=== PATIENT | male | born 1980 | race Two or more races ===

== ENCOUNTER 2016-11-30 10:01 | Inpatient (IN) | payer OTHER ==
[2016-11-30] VITALS (10 sets, daily range): BP systolic 106–151; BP diastolic 74–92
[~2016-11-30] VITALS: Ht 180.3 cm; Wt 83.9 kg
[~2016-11-30 10:01] MED LIST: IBUPROFEN600 MG ORAL; MEDROL DOSEPAK4 MG ORAL; NORCO 10/3251 EA ORAL; [UNRECOGNIZED DRUG - OTHER] PO
--- NOTE | 2016-11-30 10:18 | Brief Operative Note ---
Immediate Post Operative Note Operative Note Chief Complaint: pars fracture L5S1 Pre-op Diagnosis: L5S1 pars fracture prior L45 disc herniation Procedure: Stage 1 Anterior lumbar interbody fusion L5S1 with bmp Stage 2 posterior allen laminectomy with pedicle screw fixation of L5S1 and L45 re exploration Post-op Diagnosis: same as pre-op Findings: consistent w/pre-op dx studies Surgeon: Betty Shear Grinder Operator: Jerome Gutierrez Anesthesia: general Specimen: none Complications: none Condition: stable Estimated Blood Loss: minimal Implant(s) used?: Yes - nuvasive ashleigh, elvis synthes JOSE ANGEL RUSHING Nov 30, 2016 10:18
--- NOTE | 2016-11-30 10:18 | Pre-Procedure Note/Attestation ---
Pre-Procedure Note/Attestation Complete Prior to Procedure Planned Procedure: not applicable Procedure Narrative: Stage 1 Anterior lumbar interbody fusion L5S1 with bmp Stage 2 posterior allen laminectomy with pedicle screw fixation of L5S1 and L45 re exploration Indications for Procedure Pre-Operative Diagnosis: L5S1 pars fracture prior L45 disc herniation Attestation I attest that I discussed the nature of the procedure; its benefits; risks and complications; and alternatives (and the risks and benefits of such alternatives ), prior to the procedure, with the patient (or the patient's legal account service representative). I attest that, if there was a reasonable possibility of needing a blood transfusion, the patient (or the patient's legal account service representative) was given the [place] [facility] [employer] [facility] standardized written summary, pursuant to the [place] Blood Safety Act ([place] Health and Safety Code # 1645, as amended). I attest that I re-evaluated the patient just prior to the surgery and that there has been no change in the patient's H&P, except as documented below: JOSE ANGEL RUSHING Nov 30, 2016 10:18
[2016-11-30] MEDS ORDERED: Naloxone 0.4mg/ml Inj IVP PRN ×2 (10:30→22:45)
[2016-11-30] MEDS ORDERED: HYDROmorphone 1mg/ml Carpuject SUBQ PRN (10:30)
[2016-11-30] MEDS ORDERED: Norco 7.5mg/325mg tab ORAL PRN ×3 (10:30→13:00)
[2016-11-30] MEDS ORDERED: Norco 5mg/325mg tab ORAL PRN ×2 (10:30→13:00)
[2016-11-30] MEDS ORDERED: Metoclopramide 10mg/2ml Inj IVP PRN ×2 (10:30→13:00)
[2016-11-30] MEDS ORDERED: Milk of Magnesia 30ml Ud ORAL PRN (10:30)
--- NOTE | 2016-11-30 11:10 | Anethesia Preoperative Eval ---
Anesthesia Pre-op PMH/ROS General Date of Evaluation: Nov 30, 2016 Time of Evaluation: 12:26 Anesthesiologist: Lawrence ASA Score: ASA 2 Mallampati Score Class I : Soft palate, uvula, fauces, pillars visible Class II: Soft palate, uvula, fauces visible Class III: Soft palate, base of uvula visible Class IV: Only hard plate visible Mallampati Classification: Class II Surgeon: Betty Diagnosis: Back Pain Surgical Procedure: ALIF L5-S1, PLIF L5-S1, Pedicle screws Anesthesia History: none Family History: no anesthesia problems Allergies: Coded Allergies: NO KNOWN DRUG ALLERGIES (Verified Allergy, Unknown, 06/16/15) Medications: see eMAR Past Medical History Gastrointestinal/Genitourinary: Reports: GERD Neurologic/Psychiatric: Reports: depression/anxiety, other - Chronic Pain PSxH Narrative: R Forearm Sx, Bilateral Knee Arthroscopy, Cervical Spine SX Anesthesia Pre-op Phys. Exam Physician Exam Vital Signs Date Time Temp Pulse Resp B/P Pulse Ox O2 Delivery O2 Flow Rate FiO2 11/30/16 11:15 97.1 51 18 134/74 100 Room Air Constitutional: NAD Neurologic: CN 2-12 intact Cardiovascular: RRR Respiratory: CTA Gastrointestinal: S/NT/ND Airway Exam Mallampati Score: Class II MO: full ROM: limited Teeth: intact Anesthesia Pre-op A/P Risk Assessment & Plan Assessment: ASA 2 Plan: GA, BIS, Glidescope Status Change Before Surgery: No Pre-Antibiotics Dru Grams Ancef IV Given Within 1 Hr of Incision: Yes Time Given: 12:46 Bandar Bravo MD Nov 30, 2016 11:10
[2016-11-30] MEDS ORDERED: SOMA350 MG PO (11:28)
[2016-11-30] MEDS ORDERED: Heparin 5000 units/ml inj ONE (12:05)
[2016-11-30] MEDS ORDERED: Vancomycin 1gm inj IVPB ONE ×2 (12:05→13:18)
[2016-11-30] MEDS ORDERED: Surgicel 4in x 8in TOPIC ONE (12:05)
[2016-11-30] MEDS ORDERED: Thrombin 5000 units TOPIC ONE ×2 (12:05→13:18)
[2016-11-30] MEDS ORDERED: Bupivacaine w/Epi 0.5% 30ml Vial INJ ONE ×2 (12:06→14:56)
[2016-11-30] MEDS ORDERED: Bacitracin 50000 Units Vial ONE (12:06)
[2016-11-30] MEDS ORDERED: LR 1000ml ONE (12:30)
[2016-11-30] MEDS ORDERED: Sterile Water Irrig 1000ml IRRIG ONE (12:30)
[2016-11-30] MEDS ORDERED: Propofol 10mg/ml 100ml btl IV ONE (12:30)
[2016-11-30] MEDS ORDERED: fentaNYL 100 mcg/2 mL IV ONE (12:30)
[2016-11-30] MEDS ORDERED: Zemuron 50mg/5ml Inj IV ONE (12:30)
[2016-11-30] MEDS ORDERED: fentaNYL 250mcg/5ml ONE (12:30)
[2016-11-30] MEDS ORDERED: Lidocaine 1% Plain 30 ml INJ ONE (12:30)
[2016-11-30] MEDS ORDERED: NS Irrig 1000ml ONE (12:30)
[2016-11-30] MEDS ORDERED: Dexamethasone 4mg/ml vial ONE (12:30)
[2016-11-30] MEDS ORDERED: LR 1000ml 1,000 ML IVLG SCH (12:58)
[2016-11-30] MEDS ORDERED: Oxycodone/Acetaminophen 5-325 ORAL PRN (13:00)
[2016-11-30] MEDS ORDERED: Meperidine 25mg/ml Inj IV PRN (13:00)
[2016-11-30] MEDS ORDERED: Hydromorphone 0.5mg/0.5ml inj IVP PRN (13:00)
[2016-11-30] MEDS ORDERED: LORazepam Inj 2mg/ml 1ml IV PRN (13:00)
[2016-11-30] MEDS ORDERED: Labetalol 5mg/ml 20ml vial IV PRN (13:00)
[2016-11-30] MEDS ORDERED: Atropine Inj 1mg/10ml Syr IV PRN (13:00)
[2016-11-30] MEDS ORDERED: Ketorolac 30mg Inj IV PRN (13:00)
[2016-11-30] MEDS ORDERED: Midazolam 2mg/2ml Inj IVP PRN (13:00)
[2016-11-30] MEDS ORDERED: Ketorolac 60mg Inj IV PRN (13:00)
[2016-11-30] MEDS ORDERED: fentaNYL 100 mcg/2 mL IV PRN (13:00)
[2016-11-30] MEDS ORDERED: DiphenhydrAMINE 50mg/ml Inj IVP PRN (13:00)
--- NOTE | 2016-11-30 13:13 | Immediate Post-Op Evaluation ---
Immediate Post-Op Evalulation Immediate Post-Op Evalulation Procedure: ALIF L5-S1, PLIF L5-S1, Pedicle screws Date of Evaluation: Nov 30, 2016 Time of Evaluation: 17:40 IV Fluids: 1500 Blood Products: 0 Estimated Blood Loss: 150 Urinary Output: 200 Blood Pressure Systolic: 106 Blood Pressure Diastolic: 79 Pulse Rate: 111 Respiratory Rate: 18 O2 Sat by Pulse Oximetry: 100 Temperature (Fahrenheit): 98.1 Pain Score (1-10): 3 Nausea: No Vomiting: No Complications 0 Patient Status: awake, reacts, patent, extubated, none Hydration Status: adequate Dru Grams Ancef IV Given Within 1 Hr of Incision: Yes Time Given: 12:46 Bandar Bravo MD Nov 30, 2016 13:13
[2016-11-30] MEDS ORDERED: Acetaminophen (Non formulary) 100 ML IV ONE (16:00)
[2016-11-30] MEDS: Dexamethasone 4mg/ml vial IVP SCH (19:12)
[2016-11-30] MEDS: HYDROmorphone 1mg/ml Carpuject IVP PRN ×2 (19:52→21:43)
--- NOTE | 2016-11-30 20:19 | Consultation ---
DATE OF CONSULTATION: 11/30/2016 VASCULAR SURGERY CONSULTATION: HISTORY OF PRESENT ILLNESS: The patient is a 36-year-old male who was admitted to undergo anterior lumbar interbody fusion of L5-S1 as determined by his spine surgeon, Dr. Dave Hernández. Prior to today, the patient had received at his home my separate informed consent form which introduced me and explained my role in the approach for the anterior lumbar spine surgery. It also outlined the possible risks and complications, including, but not limited to hemorrhage, need for blood transfusions, retrograde ejaculation, wound infection, bowel or ureter injury, arterial or venous injury or thrombosis, and the remote chance of etc. This form was translated in Romanian as well. The patient read the form, signed it and sent it back to my office. In addition, that is my usual protocol I attempted to reach the patient by phone, but was unsuccessful. However, again as my usual protocol, the patient was seen in the preoperative holding area with the content of the form were reviewed and any questions were answered. He was shown the site of the incision. He had palpable bilateral dorsalis pedis pulses. He was 5 feet 11 inches tall, weighing approximately 182 pounds giving him a BMI of 25. His hematocrit was 45 with a platelet count of 317,000. His INR was 0.96 with a PTT of 32 seconds. That consent was signed once again with a nurse witness and signature as well and then placed into the chart. He fully understood and wished to proceed. There were no contraindications and we would proceed with proposed operation. Henry Gutierrez M.D. DR: Karoline JOB#: [id number] CC:
[2016-11-30] MEDS: NS w/KCl 20mEq 1,000 ML IV SCH (20:30)
[2016-11-30] MEDS: ceFAZolin sod 1 GM in D5W 55 ML IV SCH (20:32)
[2016-11-30] MEDS: Docusate 100mg cap ORAL SCH (20:42)
--- NOTE | 2016-11-30 20:59 | Operative Note - Dictated ---
DATE OF OPERATION: 11/30/2016 OPERATION: 1. Muscle sparing anterior abdominal retroperitoneal approach for anterior lumbar interbody fusion. 2. Plastic closure repair of abdominal wound. CO-SURGEONS: 1. Sonu Gutierrez M.D. 2. Dave Hernández M.D. ANESTHESIA: General. PREOPERATIVE DIAGNOSIS: Disk herniation with lumbar radiculopathy, L5-S1. POSTOPERATIVE DIAGNOSIS: Disk herniation with lumbar radiculopathy, L5-S1. PROCEDURE: Prior to surgery, the patient had received at his home my separate informed consent form, which introduced me and explained my role in the approach for the anterior lumbar spine surgery. It also outlined the possible risks and complications including, but not limited to hemorrhage, need for blood transfusions, retrograde ejaculation, wound infection, bowel or ureter injury, arterial or venous injury or thrombosis, and the remote chance of etc. The patient read the form, signed it and brought back to the hospital with him today. The patient read the form, signed it and sent it back to my office. In addition, as per my usual protocol I attempted to reach the patient by phone, but was unsuccessful. However, again as my usual protocol the patient was seen in the preoperative holding area with the content of the form were reviewed and any questions were answered. He was shown the site of the incision. He had palpable bilateral dorsalis pedis pulses. That consent was signed once again with a nurse witnessed and signature as well and then placed into the chart. He fully understood and wished to proceed. A preoperative Vascular Surgery consultation report was dictated. The patient was taken into the operating room and placed in a supine position. Using an endotracheal tube, he was placed under general anesthesia without difficulty. His abdomen was prepped and draped in the usual sterile manner. An appropriate time-out was obtained. A transverse incision was made in the left lower quadrant from the midline and carried down through the subcutaneous tissues down to the rectus fascia. Hemostasis was achieved using electrocautery. The rectus fascia was incised transversely and elevated off the anterior surface of the muscle for a distance of approximately 4 cm, both caudad and cephalad. This would allow for retraction of the rectus muscle laterally, later in the case noted to obtain direct anterior-posterior approach to the anterior surface of the spine. The inferior epigastric vessels were identified and preserved. Laterally, the retroperitoneal space was entered down to the left psoas muscle. The left ureter was identified and protected, as it was mobilized with the peritoneum more medially until the left iliac artery was identified. Deep self-retaining retractors such as Lisa and Bookwalter were utilized to hold the abdominal wall and peritoneal contents in place while further dissection was carried out. Careful blunt dissection was carried out below the bifurcation of the iliac vessels with several medial branches of the iliac vein were taken between hemoclips and transected. The middle sacral artery was taken between hemoclips and transected. Careful blunt dissection was carried out to preserve the sympathetic chains laterally as well as the parasympathetic plexus, which lies anteriorly along the surface of the fifth lumbar vertebra. Further careful blunt dissection was utilized to expose the anterior surface of the multiple vertebral bodies intervening disc space. Several malleable retractor blades were now placed in all quadrants and the rectus muscle now retracted laterally, which allowed exposure and direct anterior-posterior approach to the anterior surface of the spine. A needle was inserted into the appropriate disc space and an x-ray was taken to verify the exposure. The spine surgeon then proceeded to perform diskectomy and fusion, which would be dictated in a separate report by the spine surgeon, Dr. Hernández. Antibiotic irrigation had been carried out. The malleable retractors were removed. Vancomycin powder was left in the retroperitoneal space. The iliac vessels were checked and there was good flow without thrombus within the iliac vein as well as good flow without a spasm or thrill in the artery. A further check for hemostasis was made and the integrity of the ureter was verified. The peritoneum was allowed to return to its anatomical location and then the anterior rectus sheath approximated using continuous running suture of #1 Vicryl. Subcutaneous tissues were irrigated using dilute Betadine solution as well as antibiotic solution. Hemostasis noted to be achieved. Plastic closure repair of the abdominal wound was continued using 2-0 Vicryl followed by skin approximation using continuous subcuticular suture of 4-0 Monocryl. Steri-Strips were applied. Dry sterile gauze OpSite dressing was applied. The sponge, pad, needle and instrument counts reported as correct. Estimated blood loss was less than 50 mL. There were no complications during this part of procedure. At completion of this part of the procedure, the patient had maintenance of strong palpable bilateral dorsalis pedis pulses and the pulse oximeter registered 100% on the left foot. The patient will remain in the operating room to undergo posterior instrumentation by the spine surgeon. Henry Gutierrez M.D. DR: FARHAT JOB#: [id number] CC:
[2016-11-30] MEDS ORDERED: Rate Change PCA 1 Each MISC PRN (22:45)
[2016-11-30] MEDS ORDERED: PCA HYDROmorphone 1mg/ml 30 ML IV PRN (22:45)
[2016-11-30] MEDS: PCA shift volume MISC SCH (23:00)
[2016-12-01 00:16] VITALS: BP 122/88
[2016-12-01] MEDS: Dexamethasone 4mg/ml vial IVP SCH ×3 (00:28→12:49)
[2016-12-01 04:00] VITALS: BP 129/59
[2016-12-01] MEDS: ceFAZolin sod 1 GM in D5W 55 ML IV SCH ×2 (05:09→12:49)
[2016-12-01] MEDS: NS w/KCl 20mEq 1,000 ML IV SCH ×2 (05:29→17:43)
[2016-12-01] MEDS ORDERED: HYDROmorphone 1mg/ml Carpuject IVP ONE (06:45)
[2016-12-01] MEDS: PCA shift volume MISC SCH ×3 (07:00→23:00)
[2016-12-01 08:00] VITALS: BP 134/63
[2016-12-01] MEDS ORDERED: Rate Change PCA 1 Each MISC PRN (08:00)
[2016-12-01] MEDS ORDERED: PCA HYDROmorphone 1mg/ml 30 ML IV PRN ×2 (08:00→14:45)
[2016-12-01] MEDS: LORazepam Inj 2mg/ml 1ml IV PRN ×3 (08:01→19:40)
[2016-12-01] MEDS: Docusate 100mg cap ORAL SCH ×2 (09:00→17:44)
--- NOTE | 2016-12-01 10:12 | 48 Hour Post Anesthesia Eval ---
Post Anesthesia Evaluation Procedure: ALIF L5-S1, PLIF L5-S1, Pedicle screws Date of Evaluation: Dec 01, 2016 Time of Evaluation: 10:10 Blood Pressure Systolic: 128 0: 76 Pulse Rate: 83 Respiratory Rate: 20 Temperature (Fahrenheit): 97.6 O2 Sat by Pulse Oximetry: 98 Airway: patent Nausea: No Vomiting: No Pain Intensity: 2 Hydration Status: adequate Cardiopulmonary Status: stable Mental Status/LOC: patient returned to baseline Follow-up Care/Observations: n/a Post-Anesthesia Complications: none Follow-up care needed: N/A JAGJIT WEBB M.D. Dec 01, 2016 10:12
[2016-12-01 12:00] VITALS: BP 117/77
[2016-12-01] MEDS: DiphenhydrAMINE 50mg/ml Inj IVP PRN (13:14)
[2016-12-01] MEDS ORDERED: Tubing IV Secondary IV ONE (13:56)
--- NOTE | 2016-12-01 14:32 | Consultation ---
History of Present Illness General Date patient seen: Dec 01, 2016 Time patient seen: 14:31 Chief Complaint: low back pain Referring physician: Dave Hernández MD Reason for Consultation: postop medical management Present Illness HPI 36 y/o man with hx of lumbar stenosis with lumbar hnp and radiculopathy s/p Stage 1 Anterior lumbar interbody fusion L5S1 with bmp Stage 2 posterior lalen laminectomy with pedicle screw fixation of L5S1 and L45 re exploration POD#1 without periop or postop complications. No chest pain or dyspnea, no n/v. Postop pain well controlled on current regimen. Allergies: Coded Allergies: NO KNOWN DRUG ALLERGIES (Verified Allergy, Unknown, 06/16/15) Medication History Scheduled Carisoprodol* (Soma*), 350 MG PO PRN, (Reported) Scheduled PRN Hydrocodone/Acetaminophen (Hydrocodon-Acetaminophn 10-325), 1 TAB ORAL DAILY PRN for For Pain, (Reported) Patient History History Provided By: Patient Healthcare decision maker ADA() Resuscitation status Full Code Advanced Directive on File No Past Medical/Surgical History Past Medical/Surgical History: (1) HNP (herniated nucleus pulposus), cervical (2) HNP (herniated nucleus pulposus), lumbar Family History Family History: (1) Family history in first degree relatives is unremarkable Social History Social History: (1) No significant social history Review of Systems ROS Narrative CONSTITUTIONAL: No weight loss, fever, chills, weakness or fatigue. HEENT: Eyes: No visual loss, blurred vision, double vision or yellow sclerae. Ears, Nose, Throat: No hearing loss, sneezing, congestion, runny nose or sore throat. SKIN: No rash or itching. CARDIOVASCULAR: No chest pain, chest pressure or chest discomfort. No palpitations or edema. RESPIRATORY: No shortness of breath, cough or sputum. GASTROINTESTINAL: No anorexia, nausea, vomiting or diarrhea. No abdominal pain or blood. NEUROLOGICAL: No headache, dizziness, syncope, paralysis, ataxia. No change in bowel or bladder control. MUSCULOSKELETAL: No muscle, back pain, joint pain or stiffness. HEMATOLOGIC: No anemia, bleeding or bruising. LYMPHATICS: No enlarged nodes. No history of splenectomy. PSYCHIATRIC: No history of depression or anxiety. ENDOCRINOLOGIC: No reports of sweating, cold or heat intolerance. No polyuria or polydipsia. ALLERGIES: No history of asthma, hives, eczema or rhinitis. Physical Exam Physical Exam Narrative General: alert, cooperative, no distress, appears stated age Head: normocephalic, without obvious abnormality, atraumatic Eyes: conjunctivae/corneas clear. PERRL, EOM's intact Throat: lips, mucosa, and tongue normal. MMM Neck: supple, symmetrical, trachea midline, and no JVD Lungs: clear to auscultation bilaterally Heart: regular rate and rhythm, S1, S2 normal, no murmur, click, rub or gallop Abdomen: soft, non-tender, non-distended, bowel sounds normal; no masses or organomegaly Extremities: extremities normal, atraumatic, no cyanosis or edema Pulses: 2+ and symmetric Skin: skin color, texture, turgor normal; no rashes or lesions Last 24 Hour Vital Signs Date Time Temp Pulse Resp B/P Pulse Ox O2 Delivery O2 Flow Rate FiO2 12/01/16 12:00 16 12/01/16 12:00 97.7 77 18 117/77 96 Nasal Cannula 2.0 12/01/16 10:12 83 20 98 12/01/16 08:00 98.6 102 18 134/63 98 Nasal Cannula 3.0 12/01/16 08:00 16 12/01/16 04:00 97.2 62 19 129/59 99 Room Air 12/01/16 01:00 16 12/01/16 00:30 16 12/01/16 00:16 97.2 75 19 122/88 97 Room Air 11/30/16 23:46 16 11/30/16 23:36 16 11/30/16 23:15 16 11/30/16 23:00 16 11/30/16 20:00 97.7 67 18 121/89 100 Nasal Cannula 3.0 11/30/16 18:32 97.7 11/30/16 18:32 97.7 11/30/16 18:30 97.7 73 18 124/81 98 Nasal Cannula 3.0 11/30/16 18:25 95 14 126/75 97 Nasal Cannula 3.0 11/30/16 18:25 97.7 11/30/16 18:10 96 16 124/90 98 Nasal Cannula 3.0 11/30/16 17:55 96 16 146/92 20 Simple Mask 8.0 11/30/16 17:39 84 16 129/77 100 Simple Mask 8.0 11/30/16 17:34 80 15 151/74 100 Simple Mask 8.0 11/30/16 17:31 111 18 100 11/30/16 17:29 98.1 120 38 106/79 100 Simple Mask 8.0 Intake and Output 11/30/16 12/01/16 19:00 07:00 Intake Total 1600 ml 700 ml Output Total 450 ml 1025 ml Balance 1150 ml -325 ml Intake Oral 200 ml IV Total 1600 ml 500 ml Output Urine Total 300 ml 1025 ml Estimated Blood Loss 150 ml # Voids 1 Height (Feet): 5 Height (Inches): 11.00 Weight (Pounds): 185 Medications Current Medications Medications (Trade) Dose Ordered Sig/Alessio Route PRN Reason Start Time Stop Time Status Last Admin Dose Admin Acetaminophen (Tylenol) 650 mg Q4H PRN ORAL headache or temp>101 11/30/16 10:30 12/30/16 10:29 Acetaminophen/ Hydrocodone Bitart (Gray 5/325) 1 tab Q3H PRN ORAL pain score 1-3 12/03/16 08:01 12/10/16 08:00 Acetaminophen/ Hydrocodone Bitart (Gray 7.5/325) 1 ea Q3H PRN ORAL pain score 4-6 12/03/16 08:01 12/10/16 08:00 Acetaminophen/ Hydrocodone Bitart (Gray 7.5/325) 2 ea Q3H PRN ORAL pain scale 7-10 12/03/16 08:01 12/10/16 08:00 Carisoprodol (Soma) 350 mg TIDPRN PRN ORAL SPASM 11/30/16 10:30 12/30/16 10:29 Diphenhydramine HCl (Benadryl) 25 mg Q6H PRN IVP Itching/Pruritis 11/30/16 22:45 12/02/16 22:44 12/01/16 13:14 Docusate Sodium (Colace) 100 mg TWICE A DAY ORAL 11/30/16 21:00 12/30/16 20:59 11/30/16 20:42 Hydromorphone HCl (Dilaudid) 2 mg Q4H PRN IVP Moderate Pain (Pain Scale 4-6) 12/01/16 08:00 12/03/16 07:59 Hydromorphone HCl (Dilaudid) 2 mg q3h PRN SUBQ Severe Pain (Pain Scale 7-10) 12/01/16 08:00 12/03/16 07:59 Hydromorphone HCl (MARKETING PROGRAM COORDINATOR Dilaudid) 30 ml @ 0 mls/hr Q24H PRN IV For Pain 12/01/16 08:00 12/03/16 07:59 Labetalol HCl (Normodyne) 5 mg Q10M PRN IV SBP>160 / DBP>90 11/30/16 13:00 12/01/16 18:30 Lorazepam (Ativan 2mg/ml 1ml) 1 mg Q4H PRN IV For Anxiety 12/01/16 08:00 12/08/16 07:59 12/01/16 14:14 Magnesium Hydroxide (Mom) 30 ml QIDPRN PRN ORAL Constipation 11/30/16 10:30 12/30/16 10:29 Metoclopramide HCl (Reglan) 10 mg Q6H PRN IVP Nausea & Vomiting 11/30/16 10:30 12/30/16 10:29 Miscellaneous Medication (MARKETING PROGRAM COORDINATOR Rate Change) 1 ea DAILY PRN MISC rate change 12/01/16 08:00 12/03/16 07:59 Miscellaneous Medication (MARKETING PROGRAM COORDINATOR shift volume) 1 ea Q8HR@07,15,23 MISC 12/01/16 15:00 12/03/16 14:59 Naloxone HCl 0.1 mg 0.1 mg Q1M PRN IVP RR<10/min OR SBP<90 mmHg 11/30/16 22:45 12/31/16 22:44 Ondansetron HCl (Zofran) 4 mg Q6H PRN IVP Nausea & Vomiting 11/30/16 22:45 12/02/16 22:44 Prochlorperazine (Compazine) 10 mg Q6H PRN IVP Nausea & Vomiting 11/30/16 10:30 12/30/16 10:29 Sodium Chloride (NS w/KCl 20mEq) 1,000 ml @ 100 mls/hr Q10H IV 11/30/16 20:00 12/30/16 19:59 12/01/16 05:29 Temazepam (Restoril) 15 mg HSPRN PRN ORAL Insomnia 11/30/16 10:30 12/07/16 10:29 Assessment/Plan Problem List: (1) HNP (herniated nucleus pulposus), lumbar Assessment & Plan: - s/p Stage 1 Anterior lumbar interbody fusion L5S1 with bmp Stage 2 posterior allen laminectomy with pedicle screw fixation of L5S1 and L45 re exploration - encourage mobilization/ambulation - encourage incentive spirometry to optimize pulmonary hygiene - DVT/GI prophylaxis as appropriate - ctm CBC and hemodynamics - ctm electrolytes, adjust/replete prn - PT/OT/ST, if indicated - pain control, supportive care, bowel regimen - DC planning ICD Codes: M51.26 - HNP (herniated nucleus pulposus), lumbar SNOMED: [id number] MAGGIE QURESHI Dec 01, 2016 14:32
[2016-12-01 16:00] VITALS: BP 119/68
[2016-12-01 20:00] VITALS: BP 120/70
[2016-12-02 00:24] VITALS: BP 108/61
[2016-12-02] MEDS: DiphenhydrAMINE 50mg/ml Inj IVP PRN (03:09)
[2016-12-02 04:00] VITALS: BP 108/65
[2016-12-02] MEDS: NS w/KCl 20mEq 1,000 ML IV SCH ×3 (06:20→21:15)
[2016-12-02] MEDS: PCA shift volume MISC SCH ×3 (06:26→23:00)
[2016-12-02 08:09] VITALS: BP 119/80
[2016-12-02] MEDS: Docusate 100mg cap ORAL SCH ×2 (08:21→19:53)
[2016-12-02] MEDS: LORazepam Inj 2mg/ml 1ml IV PRN ×2 (09:06→16:26)
[2016-12-02 12:54] VITALS: BP 117/67
[2016-12-02] MEDS ORDERED: Norco 5mg/325mg tab ORAL PRN (13:00)
[2016-12-02] MEDS ORDERED: Norco 7.5mg/325mg tab ORAL PRN ×2 (13:00)
--- NOTE | 2016-12-02 13:17 | General Progress Note ---
Assessment/Plan Problem List: (1) HNP (herniated nucleus pulposus), lumbar Assessment & Plan: - s/p Stage 1 Anterior lumbar interbody fusion L5S1 with bmp Stage 2 posterior allen laminectomy with pedicle screw fixation of L5S1 and L45 re exploration POD#2 - Will d/w Dr. Hernández regarding scrotal findings- can consider scrotal ultrasound or urology consult if this persists, for now will check UA - encourage mobilization/ambulation - encourage incentive spirometry to optimize pulmonary hygiene - DVT/GI prophylaxis as appropriate - ctm CBC and hemodynamics - ctm electrolytes, adjust/replete prn - PT/OT/ST, if indicated - pain control, supportive care, bowel regimen - DC planning ICD Codes: M51.26 - HNP (herniated nucleus pulposus), lumbar SNOMED: [id number] Subjective Date patient seen: Dec 02, 2016 Time patient seen: 13:13 ROS Limited/Unobtainable: No Allergies: Coded Allergies: NO KNOWN DRUG ALLERGIES (Verified Allergy, Unknown, 06/16/15) Subjective s/p lumbar spine surgery POD#2, no periop or psotop complications. No chest pain or dyspnea, states postop pain is not very well controlled on present regimen. States scrotal area is painful and area of bruising Objective Last 24 Hour Vital Signs Date Time Temp Pulse Resp B/P Pulse Ox O2 Delivery O2 Flow Rate FiO2 12/02/16 12:54 98.1 72 15 117/67 98 Room Air 12/02/16 08:52 98.1 12/02/16 08:19 98.1 12/02/16 08:09 97.7 74 16 119/80 99 Room Air 12/02/16 08:00 18 12/02/16 06:30 20 12/02/16 04:00 20 12/02/16 04:00 98.1 65 19 108/65 96 Room Air 12/02/16 00:24 98.1 77 20 108/61 94 Room Air 12/02/16 00:00 20 12/01/16 20:00 20 12/01/16 20:00 97.9 73 18 120/70 97 Room Air 12/01/16 18:30 97.9 12/01/16 16:00 98.4 68 18 119/68 Nasal Cannula 2.0 Intake and Output 12/01/16 12/02/16 19:00 07:00 Intake Total 1090 ml 1440 ml Output Total 380 ml 200 ml Balance 710 ml 1240 ml Intake Oral 290 ml 240 ml IV Total 800 ml 1200 ml Output Urine Total 380 ml 200 ml # Voids 2 Height (Feet): 5 Height (Inches): 11.00 Weight (Pounds): 185 Neck: paraspinous muscle tender Objective General: alert, cooperative, no distress, appears stated age Head: normocephalic, without obvious abnormality, atraumatic Eyes: conjunctivae/corneas clear. PERRL, EOM's intact Throat: lips, mucosa, and tongue normal. MMM Neck: supple, symmetrical, trachea midline, and no JVD Lungs: clear to auscultation bilaterally Heart: regular rate and rhythm, S1, S2 normal, no murmur, click, rub or gallop Abdomen: soft, non-tender, non-distended, bowel sounds normal; no masses or organomegaly. incision site appears c/d/i Extremities: extremities normal, atraumatic, no cyanosis or edema ecchymotic area over scrotum, no induration/fluctuance noted, no marked tenderness to palpation Pulses: 2+ and symmetric Skin: skin color, texture, turgor normal; no rashes or lesions MAGGIE QURESHI Dec 02, 2016 13:16
[2016-12-02] MEDS ORDERED: PCA HYDROmorphone 1mg/ml 30 ML IV PRN (15:00)
[2016-12-02 16:00] VITALS: BP 123/66
[2016-12-02 19:32] LABS: APPEARANCE,URINE SLIGHTLY CLOUDY; KETONES,URINE NEGATIVE (NEGATIVE); LEUKOCYTE ESTERASE ,URINE 1+ (NEGATIVE); NITRITE,URINE NEGATIVE (NEGATIVE); PH,URINE 6 (4.5-8.0); PROTEIN,URINE 1+ (NEGATIVE); UROBILINOGEN,URINE 1 MG/DL (0.0-1.0)
[2016-12-02 19:56] LABS: BACTERIA,URINE FEW /HPF; MUCUS,URINE FEW /LPF (NONE/OCC); RBC,URINE 0-2 /HPF (0 - 0); SQUAMOUS EPITHELIAL CELL,UR FEW /LPF (NONE/OCC)
[2016-12-02 20:34] VITALS: BP 134/90
[2016-12-02 20:46] LABS: ICTOTEST NEGATIVE
[2016-12-02] MEDS: oxyCONTIN 20mg tab ORAL SCH (21:15)
[2016-12-03] VITALS: BP 130/80
[2016-12-03] MEDS: LORazepam Inj 2mg/ml 1ml IV PRN (00:54)
[2016-12-03 04:00] VITALS: BP 133/72
[2016-12-03] MEDS: NS w/KCl 20mEq 1,000 ML IV SCH ×2 (06:47→19:19)
[2016-12-03] MEDS: PCA shift volume MISC SCH ×2 (07:09→15:13)
[2016-12-03 08:00] VITALS: BP 133/79
[2016-12-03] MEDS ORDERED: Norco 7.5mg/325mg tab ORAL PRN ×2 (08:01)
[2016-12-03] MEDS ORDERED: Norco 5mg/325mg tab ORAL PRN (08:01)
[2016-12-03] MEDS: Docusate 100mg cap ORAL SCH ×2 (08:54→19:19)
[2016-12-03] MEDS: oxyCONTIN 20mg tab ORAL SCH ×2 (08:55→17:34)
--- NOTE | 2016-12-03 09:09 | Operative Note - Dictated ---
DATE OF OPERATION: 11/30/2016 Stage 1 of 2. SURGEON: Dave Hernández M.D., Orthopaedic Spine Surgeon EXPOSURE SURGEON: Henry Gutierrez M.D. ANESTHESIA: General endotracheal anesthesia. PREOPERATIVE DIAGNOSES: 1. Intractable back pain. 2. Intractable leg pain. 3. Worsening radiculopathy. 4. Weakness. 5. Herniated nucleus pulposus, L5-S1 herniation. 6. Neural foraminal stenosis, L5-51 herniation. POSTOPERATIVE DIAGNOSES: 1. Intractable back pain. 2. Intractable leg pain. 3. Worsening radiculopathy. 4. Weakness. 5. Herniated nucleus pulposus, L5-S1 herniation. 6. Neural foraminal stenosis, L5-S1 herniation. PROCEDURES PERFORMED: 1. Radical anterior lumbar intervertebral L5-S1 discectomy. 2. Anterior lumbar interbody fusion using Synthes SynFix cage size 14 mm and bone morphogenetic protein with allograft [place] bone. 3. Anterior lumbar plating and fixation at L5-S1 using Synthes synfix with 4 screws 20 mm in length 4. Anterior retroperitoneal exposure. 5. Supervision and interpretation of intraoperative fluoroscopy. 6. Supervision and interpretation of somatosensory-evoked potential and free running EMG monitoring. ESTIMATED BLOOD LOSS: 150mL. COMPLICATIONS: None. INDICATIONS FOR THE PROCEDURE: The patient is a 36-year-old male who presents for intractable back pain and radiculopathy which is well documented in our clinical chart and records. We had a long discussion with Cordell regarding definitive surgical treatment options. We had a long discussion with the patient regarding the risks, alternatives, and benefits of procedure. Our description of the risks included a discussion in person as well as a signed consent which detailed all pertinent risks and the procedure itself. Briefly, our discussion included but was not limited to infection, bleeding, pseudarthrosis, spinal cord injury, neurovascular injury, dural tear, CSF leak, neuropathy, paralysis, permanent weakness/drop foot, paresthesias, blindness, palsy and weakness. The patient understood there may be a need for revision surgery or additional procedures. Approach-related complications including dysphonia, dysphagia, blindness, permanent vocal cord and neural injury, hematoma, swallowing and breathing difficulty; medical complications including liver, kidney, shock, and cardiopulmonary failure; anesthesia complications including , swelling, damage to the musculature, larynx , esophagus, trachea, blood vessels and muscles and lungs during this surgical procedure. Injury to deeper structures may be temporary or permanent. The patient understood these and elected to proceed. A written and verbal consent was given. We discussed the pros and cons of all the alternatives. We discussed the uncertainties associated with the decision. Afterwards I assessed the patients understanding and explored their preferences. All questions were answered and no guarantees were given. Medical clearance was obtained prior to surgery. OPERATIVE FINDINGS: A broad-based disc herniation at L5-S1 was encountered, which encroached on the thecal sac and neural foraminal elements therein. This L5-S1 disc was acute in nature and not calcified. It was mobile and free floating and resected easily. There was also neural foraminal stenosis at L5-S1. DESCRIPTION OF PROCEDURE: Under the benefit of general endotracheal anesthesia and with the assistance of the entire operative team, the patient was moved from the rlimestone onto the operative table in the supine position on a radiolucent frame. The head was secured and positioned appropriately. Bilateral arms were secured with Gel Pads and foam and all bony prominences were padded. The bilateral lower extremity SCD and FABIOLA hose were placed for DVT prophylaxis. A surgical timeout was called which corroborated our planned procedure. Preoperative antibiotics were administered within 30 minutes of the incision for prophylaxis. Using lateral radiography, the operative levels were delineated. An incision was marked based on our interpretation of lateral radiography and afterwards the body was prepped and draped in the usual sterile manner. The family was notified that we were ready to commence surgery and were called in the waiting room hourly for updates. An incision was based on our lateral fluoroscopic image to center the incision at the L5-S1 interspace. The wound was prepped and draped in the usual sterile fashion. Using a scalpel, a standard retroperitoneal exposure was performed by our vascular surgeon Dr. Henry Gutierrez and this is delineated in a separate operative note. After appropriate exposure at the L5-S1 disc space, we next turned our attention towards our radical discectomy. This was performed in standard fashion first beginning with a gentle mobilization of all superficial soft tissue overlying the disc space with Kittners. After this was performed we marked our midline and confirmed our disc space on AP and lateral fluoroscopy. Next, using a 10 blade long-handled scalpel, the disc was resected from the endplates in a box discectomy technique. Next using Medeiros elevators the disc was mobilized off each endplate. After this, using a large Leksell rongeurs, the entire disc was removed from the intervertebral space. All residual disc and cartilaginous endplates were resected using a combination of small and medium curettage, pituitaries, size 4 and size 6 Kerrison rongeurs. Next, the endplates were distracted in a parallel fashion using the Basilio supervisor record press and a 7.5 Thandle. At this point the PLL was resected using a small curette and a Kerrison 4 rongeur. Next the endplates were resected down to bleeding subchondral bone using a ring and box curette. For any residual bleeding which we encountered at this point, this was maintained and controlled with a combination of FloSeal, Gelfoam and bipolar cautery. Afterwards, Tisseel was used to seal the discectomy site dorsally. Next I then trialed the interspace for height, width and depth. This was confirmed on fluoroscopy and, once satisfied with our fit, we loaded and inserted a Synthes SynFix cage size 14 mm with 4 screws 20 mm in length with bone morphogenetic protein and with allograft [place] bone under AP and lateral fluoroscopy. AP and lateral fluoroscopy confirmed excellent placement at the L5-S1 interspace. Afterwards, we turned our attention towards plating from the Nusing Synthes synfix with 4 screws 20 mm in length. This anterior lumbar plating and fixation at L5-S1 with screws of 20 mm length. Final radiographs confirmed appropriate placement of all hardware, screws and our PEEK cages along with a mormon of the lumbar lordosis. Afterwards, Tisseel was used to seal the discectomy site ventrally. FloSeal and Zosyn antibiotics were placed directly on the anterior fusion site. The wounds were copiously irrigated with antibiotic impregnated saline. Afterwards, FloSeal was placed to address residual bleeding. Powdered antibiotics were directly poured into the wound to provide for direct antibiosis. Next, I turned my attention to closure. Fascial closure was performed with 1-0 Vicryl suture. Subcutaneous tissues were reapproximated with 2-0 Vicryl. The superficial subcutaneous skin was closed with a running Monocryl and Dermabond. Dressings consisted of Tegaderm and 4 x 4 gauze. The patient tolerated the procedure well and after discussion with our vascular surgeon and our anesthesiologist, we made the determination to proceed with stage 2 of 2 our posterior based approach. The details of stage 1 of the surgery were related to the patients family/representatives upon the conclusion of the procedure in the family waiting room. Stage 2 of 2. DATE OF OPERATION: 11/30/16 SURGEON: Dave Hernández M.D., Orthopaedic Spine Surgeon POLLUTION CONTROL TECHNICIAN SURGEON: Donnell Cano M.D. ANESTHESIA: General endotracheal anesthesia. PREOPERATIVE DIAGNOSES: 1. Intractable back pain. 2. Intractable leg pain. 3. Worsening radiculopathy. 4. Weakness. 5. Herniated nucleus pulposus, L5-S1 herniation. 6. Neural foraminal stenosis, L5-S1. POSTOPERATIVE DIAGNOSES: 1. Intractable back pain. 2. Intractable leg pain. 3. Worsening radiculopathy. 4. Weakness. 5. Herniated nucleus pulposus, L5-S1 herniation. 6. Neural foraminal stenosis, L5-S1. PROCEDURES PERFORMED: 1. Left-sided Franklin laminectomy/Draper-Hdz osteotomy, and complete facetectomy at L5-S1. 2. L5-S1 posterolateral fusion using allograft bone, local autograft, and residual bone morphogenetic protein. 3. Percutaneous pedicle screw fixation at L5-S1 using 40 x 6 mm screws, total of 4. 4. Confirmation of pedicle screws placement using neural monitoring. 5. Use of intraoperative microscope. 6. Supervision and interpretation of intraoperative fluoroscopy. 7. Supervision and interpretation of somatosensory-evoked potential and free running EMG monitoring. 8. L4-5 left-sided exploration and microdecompression. ESTIMATED BLOOD LOSS: 150. COMPLICATIONS: None. INDICATIONS FOR THE PROCEDURE: The patient is a 36-year-old male who presents for Stage 2 in regards to their intractable back pain and radiculopathy. This operative note details the second stage of our surgery. Prior to surgery we had a long discussion with Cordell regarding definitive surgical treatment options. We had a long discussion with the patient regarding the risks, alternatives, and benefits of procedure. Our description of the risks included a discussion in person as well as a signed consent which detailed all pertinent risks and the procedure itself. Briefly, our discussion included but was not limited to infection, bleeding, pseudarthrosis, spinal cord injury, neurovascular injury, dural tear, CSF leak, neuropathy, paralysis, permanent weakness/drop foot, paresthesias, blindness, palsy and weakness. The patient understood there may be a need for revision surgery or additional procedures. Approach related complications including dysphonia, dysphagia, blindness, permanent vocal cord and neural injury, hematoma, swallowing and breathing difficulty; medical complications including liver, kidney, shock, and cardiopulmonary failure; anesthesia complications including , swelling, damage to the musculature, larynx, esophagus, trachea, blood vessels and muscles and lungs during this surgical procedure. Injury to deeper structures may be temporary or permanent. The patient understood these and elected to proceed. A written and verbal consent was given. We discussed the pros and cons of all the alternatives. We discussed the uncertainties associated with the decision. Afterwards I assessed the patients understanding and explored their preferences. All questions were answered and no guarantees were given. This now delineates the second stage of the procedure. OPERATIVE FINDINGS: A significant amount of neural foraminal encroachment along the thecal sac and neural foraminal elements therein. This neural foraminal stenosis at L5-S1 was more than appreciated on the MRI. DESCRIPTION OF PROCEDURE: Under the benefit of general endotracheal anesthesia and with the assistance of the entire operative team, the patient was moved from the radiolucent operative table in the prone position onto a Samir frame. The head was secured and positioned appropriately. Bilateral arms were secured with Gel Pads and foam and all bony prominences were padded. The bilateral lower extremity SCD and FABIOLA hose we replaced for DVT prophylaxis. A surgical timeout was called which corroborated our planned procedure. Preoperative antibiotics were administered within 30 minutes of the incision for prophylaxis. Using lateral radiography, the operative levels were delineated. An incision was marked based on our interpretation of anterior posterior and lateral radiography and afterwards the body was prepped and draped in the usual sterile manner. The family was notified that we were ready to commence surgery and were called in the waiting room hourly for updates. An incision was based on our anterior posterior and lateral fluoroscopic image to center the incision at the L5-S1 interspace. The wound was prepped and draped in the usual sterile fashion. Using a scalpel, a midline incision was made and the subcutaneous tissue was mobilized so that within the fascia two Gordon based incisions were made, one incision on the midline focusing on her pedicle at L5-S1 through a percutaneous stab wound approach. All pedicles were cannulated in the exact same fashion for each level. This was performed in the following manner. The second incision was made slightly off midline and geared towards her L5-S1 interspace approached. Using Jamshidi needles under direct AP and lateral fluoroscopic visualization I approached the L5-S1 pedicles with Jamshidi needles making sure to leave clearance along the medial pedicle boundary/wall, and next we advanced our bilateral pedicle screw entry points under AP and lateral fluoroscopy at both our pedicles bilaterally. Next, percutaneous screws were loaded on the right and left hand side and on the contralateral side, 4x40x6.5 Screws were inserted in percutaneous fashion and afterwards these screws were stimulated. Next, a sybil was lordosed and placed percutaneously through the incision. Next, we turned our attention to our Draper-Hdz type osteotomy, facetectomy and decompression. This was performed at each level in the exact same fashion. Based on AP and lateral fluoroscopy, we centered this incision over the facet joints at L5 of the contralateral side. This was taken down through the skin and subcutaneous tissues until the overlying pars facet joints of L5-S1 were visualized under microscopic visualization. There was severe pressure on this neural foramina as palpated with the Matt dental and a Cabrera ball probe. The pars was then visualized on the contralateral side and this was carefully resected along with the lamina and superior articular process using a [employer] AM8 drill bit. This was completely resected using a Draper-Hdz type osteotomy and medial laminar removal and facetectomy. There was a significant amount of bleeding which we encountered at this point and this was maintained and controlled with a combination of FloSeal, Gelfoam and bipolar cautery. After complete resection of the facet joints, we noticed the lateral thecal sac margin and the neural elements . Next, I turned my attention to the stimulation of pedicle screws. All pedicle screws were stimulated with somatosensory evoked potentials ranging over 20 milliampere with no response. Afterwards percutaneous rods from the Synthes pedicle screw system were inserted and placed percutaneously and locking caps were placed. Next, I turned our attention for exploration of L4-5. Here, hemilaminotomy was performed and the thecal sac was visualized and gently mobilized medially. Next, the prior scar tissue plug was evaluated. This was resected using a 15 blade scalpel, arthroscopic pituitaries, and narrow pituitary. The disc was irrigated on two occasions, and all visible disc material was resected off. Final radiographs confirmed appropriate placement of all hardware, screws and our PEEK cages along with a mormon of the lumbar lordosis. The wounds were copiously irrigated with antibiotic impregnated saline. Afterwards, FloSeal was placed to address residual bleeding. Powdered antibiotics were directly poured into the wound to provide for direct antibiosis. Next I turned my attention to closure. Fascial closure was performed with 1-0 Vicryl suture. Subcutaneous tissues were reapproximated with 2-0 Vicryl. The superficial subcutaneous skin was closed with a running Monocryl and Dermabond. Dressings consisted of Tegaderm and 4 x 4 gauze. The patient tolerated the procedure well and will now be admitted to the spine floor for further observation. The details of the entire surgery were related to the patients family/representatives upon the conclusion of the procedure in the family waiting room. Dave Hernández M.D. DR: REYNALDO JOB#: [id number] CC: MELISSA
[2016-12-03 12:00] VITALS: BP 130/80
--- NOTE | 2016-12-03 13:49 | Diagnostic Imaging Report ---
Indication: Lumbar fusion Comparison: None Findings: Fluoroscopic views of the lumbar spine were obtained. Posterior anterior fusion at L5-S1 demonstrated on multiple images obtained fluoroscopically during surgery. Impression: Intraoperative imaging
--- NOTE | 2016-12-03 14:37 | General Progress Note ---
Assessment/Plan Problem List: (1) HNP (herniated nucleus pulposus), lumbar Assessment & Plan: - s/p Stage 1 Anterior lumbar interbody fusion L5S1 with bmp Stage 2 posterior allen laminectomy with pedicle screw fixation of L5S1 and L45 re exploration POD#3 - d/w Dr. Hernández regarding scrotal findings- no imaging rec for now, kaveh;l f/u with visit by vascular surgeon - encourage mobilization/ambulation - encourage incentive spirometry to optimize pulmonary hygiene - DVT/GI prophylaxis as appropriate - ctm CBC and hemodynamics - ctm electrolytes, adjust/replete prn - PT/OT/ST, if indicated - pain control, supportive care, bowel regimen - DC planning ICD Codes: M51.26 - HNP (herniated nucleus pulposus), lumbar SNOMED: [id number] Subjective Date patient seen: Dec 03, 2016 Time patient seen: 14:35 ROS Limited/Unobtainable: No Allergies: Coded Allergies: NO KNOWN DRUG ALLERGIES (Verified Allergy, Unknown, 06/16/15) Subjective s/p lumbar spine surgery POD#3, no periop or psotop complications. No chest pain or dyspnea, states postop pain is not very well controlled on present regimen. States scrotal area is still painful in the area of bruising Objective Last 24 Hour Vital Signs Date Time Temp Pulse Resp B/P Pulse Ox O2 Delivery O2 Flow Rate FiO2 12/03/16 12:00 98.9 97 20 130/80 96 Room Air 12/03/16 08:00 18 12/03/16 08:00 99.9 98 21 133/79 Room Air 12/03/16 07:25 98.9 12/03/16 04:00 100.9 96 18 133/72 95 Room Air 12/03/16 04:00 18 12/03/16 00:00 98.1 83 16 130/80 98 Room Air 12/03/16 00:00 18 12/02/16 20:34 98.1 92 18 134/90 98 Room Air 12/02/16 20:00 16 12/02/16 16:00 16 12/02/16 16:00 96.3 76 18 123/66 93 Room Air 12/02/16 15:32 98.1 Intake and Output 12/02/16 12/03/16 19:00 07:00 Intake Total 1400 ml 1340 ml Output Total 400 ml Balance 1000 ml 1340 ml Intake Oral 900 ml 840 ml IV Total 500 ml 500 ml Output Urine Total 400 ml # Voids 3 Laboratory Tests 12/02/16 19:00: Urine Color Tara, Urine Appearance Slightly cloudy, Urine pH 6, Urine Specific Gill 1.020, Urine Protein 1+H, Urine Glucose (UA) Negative, Urine Ketones Negative, Urine Occult Blood Negative, Urine Nitrite Negative, Urine Bilirubin Negative, Urine Ictotest Negative, Urine Urobilinogen 1H, Urine Leukocyte Esterase 1+H, Urine RBC 0-2H, Urine WBC 5-10H, Urine Squamous Epithelial Cells Few, Urine Bacteria Few, Urine Mucus FewH Height (Feet): 5 Height (Inches): 11.00 Weight (Pounds): 185 Objective General: alert, cooperative, no distress, appears stated age Head: normocephalic, without obvious abnormality, atraumatic Eyes: conjunctivae/corneas clear. PERRL, EOM's intact Throat: lips, mucosa, and tongue normal. MMM Neck: supple, symmetrical, trachea midline, and no JVD Lungs: clear to auscultation bilaterally Heart: regular rate and rhythm, S1, S2 normal, no murmur, click, rub or gallop Abdomen: soft, non-tender, non-distended, bowel sounds normal; no masses or organomegaly. incision site appears c/d/i Extremities: extremities normal, atraumatic, no cyanosis or edema ecchymotic area over scrotum, no induration/fluctuance noted, no marked tenderness to palpation Pulses: 2+ and symmetric Skin: skin color, texture, turgor normal; no rashes or lesions MAGGIE QURESHI Dec 03, 2016 14:37
[2016-12-03 16:00] VITALS: BP 143/82
--- NOTE | 2016-12-03 16:22 | Consultation ---
History of Present Illness General Date patient seen: Dec 03, 2016 Referring physician: Dave Hernández MD Reason for Consultation: postop medical management Present Illness Allergies: Coded Allergies: NO KNOWN DRUG ALLERGIES (Verified Allergy, Unknown, 06/16/15) Medication History Scheduled Carisoprodol* (Soma*), 350 MG PO PRN, (Reported) Scheduled PRN Hydrocodone/Acetaminophen (Hydrocodon-Acetaminophn 10-325), 1 TAB ORAL DAILY PRN for For Pain, (Reported) Patient History Healthcare decision maker ADA() Resuscitation status Full Code Advanced Directive on File No Physical Exam Last 24 Hour Vital Signs Date Time Temp Pulse Resp B/P Pulse Ox O2 Delivery O2 Flow Rate FiO2 12/03/16 12:00 18 12/03/16 12:00 98.9 97 20 130/80 96 Room Air 12/03/16 08:00 18 12/03/16 08:00 99.9 98 21 133/79 Room Air 12/03/16 07:25 98.9 12/03/16 04:00 100.9 96 18 133/72 95 Room Air 12/03/16 04:00 18 12/03/16 00:00 98.1 83 16 130/80 98 Room Air 12/03/16 00:00 18 12/02/16 20:34 98.1 92 18 134/90 98 Room Air 12/02/16 20:00 16 Intake and Output 12/02/16 12/03/16 19:00 07:00 Intake Total 1400 ml 1340 ml Output Total 400 ml Balance 1000 ml 1340 ml Intake Oral 900 ml 840 ml IV Total 500 ml 500 ml Output Urine Total 400 ml # Voids 3 Laboratory Tests Test 12/02/16 19:00 Urine Color Tara Urine Appearance Slightly cloudy Urine pH 6 (4.5-8.0) Urine Specific [place] 1.020 (1.005-1.035) Urine Protein 1+ (NEGATIVE) H Urine Glucose (UA) Negative (NEGATIVE) Urine Ketones Negative (NEGATIVE) Urine Occult Blood Negative (NEGATIVE) Urine Nitrite Negative (NEGATIVE) Urine Bilirubin Negative (NEGATIVE) Urine Ictotest Negative Urine Urobilinogen 1 MG/DL (0.0-1.0) H Urine Leukocyte Esterase 1+ (NEGATIVE) H Urine RBC 0-2 /HPF (0 - 0) H Urine WBC 5-10 /HPF (0 - 0) H Urine Squamous Epithelial Cells Few /LPF (NONE/OCC) Urine Bacteria Few /HPF (NONE) Urine Mucus Few /LPF (NONE/OCC) H Height (Feet): 5 Height (Inches): 11.00 Weight (Pounds): 185 Medications Current Medications Medications (Trade) Dose Ordered Sig/Alessio Route PRN Reason Start Time Stop Time Status Last Admin Dose Admin Acetaminophen (Tylenol) 650 mg Q4H PRN ORAL headache or temp>101 11/30/16 10:30 12/30/16 10:29 12/03/16 11:12 Carisoprodol (Soma) 350 mg TIDPRN PRN ORAL SPASM 11/30/16 10:30 12/30/16 10:29 Docusate Sodium (Colace) 100 mg TWICE A DAY ORAL 11/30/16 21:00 12/30/16 20:59 12/03/16 08:54 Gabapentin 300 mg 300 mg THREE TIMES A DAY ORAL 12/02/16 09:00 01/01/17 08:59 12/03/16 12:11 Hydromorphone HCl (Dilaudid) 2 mg Q2H PRN IVP SEVERE BREAKTHROUGH PAIN 12/02/16 15:00 12/09/16 14:59 12/03/16 16:13 Hydromorphone HCl (CLINICAL CYTOGENETICS DIRECTOR Dilaudid) 30 ml @ 0 mls/hr Q24H PRN IV For Pain 12/02/16 15:00 12/04/16 23:59 12/03/16 05:15 Lorazepam (Ativan 2mg/ml 1ml) 1 mg Q4H PRN IV For Anxiety 12/01/16 08:00 12/08/16 07:59 12/03/16 00:54 Magnesium Hydroxide (Mom) 30 ml QIDPRN PRN ORAL Constipation 11/30/16 10:30 12/30/16 10:29 Metoclopramide HCl (Reglan) 10 mg Q6H PRN IVP Nausea & Vomiting 11/30/16 10:30 12/30/16 10:29 12/02/16 01:25 Miscellaneous Medication (CLINICAL CYTOGENETICS DIRECTOR Rate Change) 1 ea DAILY PRN MISC rate change 12/01/16 08:00 12/04/16 23:59 Miscellaneous Medication (CLINICAL CYTOGENETICS DIRECTOR shift volume) 1 ea Q8HR@07,15,23 MISC 12/01/16 15:00 12/04/16 23:59 12/03/16 15:13 Naloxone HCl (Narcan) 0.1 mg Q1M PRN IVP RR<10/min OR SBP<90 mmHg 11/30/16 22:45 12/31/16 22:44 Oxycodone HCl (OxyCONTIN) 20 mg Q12HR ORAL 12/02/16 21:00 12/09/16 20:59 12/03/16 08:55 Prochlorperazine (Compazine) 10 mg Q6H PRN IVP Nausea & Vomiting 11/30/16 10:30 12/30/16 10:29 Sodium Chloride (NS w/KCl 20mEq) 1,000 ml @ 100 mls/hr Q10H IV 11/30/16 20:00 12/30/16 19:59 12/03/16 06:47 Temazepam (Restoril) 15 mg HSPRN PRN ORAL Insomnia 11/30/16 10:30 12/07/16 10:29 Assessment/Plan Assessment/Plan (1) Lumbar Radiculopathy (2) Lumbar Herniated Disc (3) S/P Anterior + Posterior Lumbar Fusion Seen Dictated KAILASH BEASLEY Dec 03, 2016 16:22
[2016-12-03] MEDS ORDERED: Lactulose 20gm/30ml UDC ORAL PRN (16:30)
[2016-12-03] MEDS ORDERED: Norco 10mg/325mg tab ORAL PRN (16:30)
[2016-12-03 20:00] VITALS: BP 120/76
--- NOTE | 2016-12-03 20:38 | Progress Note ---
DATE: 12/03/2016 VASCULAR SURGERY PROGRESS NOTE SUBJECTIVE: The patient is postoperative day #3 following anterior lumbar interbody fusion of L5-S1 with posterior instrumentation and procedure who has ecchymosis of his anterior abdominal wall and left proximal thigh area as well as his scrotal sac. The scrotal sac is soft and appears to be just the skin itself being ecchymotic. The patient has been reassured that the ecchymosis will resolve over the next one to two weeks and he fully understands and feels reassured. He can be discharged as per her spine surgery, Dr. Hernández and the can tester. Henry Gutierrez M.D. DR: FARHAT JOB#: [id number] CC:
[2016-12-04] VITALS: BP 123/75
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
[2016-12-04] MEDS: oxyCONTIN 20mg tab ORAL SCH ×2 (00:54→08:41)
[2016-12-04] MEDS: LORazepam Inj 2mg/ml 1ml IV PRN (02:24)
[2016-12-04 04:00] VITALS: BP 129/77
[2016-12-04] MEDS: NS w/KCl 20mEq 1,000 ML IV SCH (04:00)
[2016-12-04] MEDS: Docusate 100mg cap ORAL SCH (08:41)
--- NOTE | 2016-12-04 08:49 | General Progress Note ---
Assessment/Plan Assessment/Plan (1) Lumbar Radiculopathy (2) Lumbar Herniated Disc (3) S/P Anterior + Posterior Lumbar Fusion We will continue OxyContin, Dilaudid and [place]. The patient was discussed with Dr. Douglas and Dr. Douglas concurred. Subjective Date patient seen: Dec 04, 2016 Time patient seen: 07:15 - am Allergies: Coded Allergies: NO KNOWN DRUG ALLERGIES (Verified Allergy, Unknown, 06/16/15) Subjective REVIEW OF SYSTEMS: Denies rash, fever, chills, sweating, dizziness, drowsiness, blurred vision, sore throat, or change in weight. No shortness of breath or chest pain. No nausea, vomiting, or blood in the stool or urine. No dysuria. He is complaining of low back pain. SUBJECTIVE: Pain has been reducing on the current regimen of medication He says at this time it is a 7/10 and tolerated with the Oxycontin and Dilaudid. Objective Last 24 Hour Vital Signs Date Time Temp Pulse Resp B/P Pulse Ox O2 Delivery O2 Flow Rate FiO2 12/04/16 04:00 97.2 81 18 129/77 95 Room Air 12/04/16 00:00 96.3 83 18 123/75 98 Room Air 12/03/16 20:00 98.2 88 19 120/76 94 Room Air 12/03/16 16:00 98.2 83 19 143/82 98 Room Air 12/03/16 16:00 16 12/03/16 12:00 18 12/03/16 12:00 98.9 97 20 130/80 96 Room Air Intake and Output 12/03/16 12/04/16 19:00 07:00 Intake Total 720 ml 1180 ml Balance 720 ml 1180 ml Intake Oral 720 ml 480 ml IV Total 700 ml # Voids 4 2 Height (Feet): 5 Height (Inches): 11.00 Weight (Pounds): 185 Objective PHYSICAL EXAMINATION: GENERAL: Alert, awake, and oriented x3. HEENT: PERRLA. NECK: Range of motion is reduced due to the patient's clinical condition. No tenderness to paracervical muscles. No adenopathy. LUNGS: Clear. HEART: Regular. ABDOMEN: Tenderness to palpation. Bandages applied. BACK: Back range of motion is decreased in flexion and extension with tenderness to paraspinal muscles and bandage is noted with tenderness to palpation. EXTREMITIES: No cyanosis. No clubbing. NEURO: No changes. KAILASH BEASLEY Dec 04, 2016 08:49
[2016-12-04] MEDS ORDERED: PERCOCET 10-321 EACH ORAL (09:29)
--- NOTE | 2016-12-04 17:38 | Discharge Summary ---
Discharge Summary Hospital Course Date of Admission Nov 30, 2016 at 10:01 Date of Discharge Dec 04, 2016 Admitting Diagnosis Lumbar stenosis Reason for Hospitalization: lumbar stenosis HPI Cordell Ornelas is a 36 year old male who was admitted on Nov 30, 2016 at 10:01 for Lumbar Radiculopathy Consultations Pain Management Vascular Surgery Procedures Lumbar Surgery (See Operative Report) Hospital Course 36 y/o man with hx of lumbar radiculopathy, s/p lumbar surgery, no periop or postop complications. Postop course complicated by difficult to control pain, pain management consulted. After adequate pain control, pt was dced home on po pain meds and will f/u with Dr. Betty pena outpt in 1-2 weeks. Discharge Medications Continued Medications: Carisoprodol* (Soma*) 350 Mg Tablet 350 MG PO PRN, TAB Oxycodone Hcl/Acetaminophen 10-325 Mg Tablet (Percocet 10-325 Mg Tablet*) 1 Each Tablet 1 TAB ORAL Q6H PRN for For Pain, #30 TAB 0 Refills Discontinued Medications: Hydrocodone/Acetaminophen (Hydrocodon-Acetaminophn 10-325) 1 Ea Tab 1 TAB ORAL DAILY PRN for For Pain, #30 TAB 0 Refills Discharge Condition Upon Discharge: stable Discharge Disposition Patient was discharged to Home () Discharge Diagnoses: (1) HNP (herniated nucleus pulposus), lumbar MAGGIE QURESHI Dec 04, 2016 17:38
--- NOTE | 2016-12-05 04:48 | Discharge Summary ---
DATE OF ADMISSION: 11/30/2016 DATE OF DISCHARGE: 12/04/2016 PROCEDURE PERFORMED DURING ADMISSION: L4-5 exploration and anterior and posterior fusion of L5-S1 level. REASON FOR ADMISSION: L5-S1 pars fracture. HOSPITAL COURSE/TREATMENT RENDERED: DISCHARGE PHYSICAL EXAM: 1. Patient was ambulating with and without the assistance of physical therapy. 2. Prior to discharge home incision was clean and dry with minimal swelling. 3. Follows commands. 4. Alert and oriented. 5. Lozoya discontinued, voiding. 6. Incentive spirometer at bedside. 7. IVF hep locked. MOTOR: Demonstrates expected postoperative bulk and tone. Moves biceps, triceps, and deltoid musculature on command. Moves hip flexors, quadriceps, tibialis anterior, EHL, gastrocsoleus musculature on command as well. TREATMENT RENDERED: 1. Daily nursing care. 2. Physical Therapy. 3. Occupational Therapy. 4. Intravenous medications. 5. Oral medications. 6. Daily postoperative examinations by Spine surgery team. CONDITION OF PATIENT ON DISCHARGE: The condition on discharge is stable for discharge to home. DISCHARGE INSTRUCTIONS: Our specific instructions relating to physical activity, medications diet and follow-up care are detailed in our standard operative folder and were given to this patient prior to surgery. We will however summarize these briefly as stated below. Regarding physical activity we would like the patient to limit their flexion, extension and rotation. We also require a limitation on their bending lifting and twisting. All medication has been called in prior to surgery to their pharmacy of choice. They can resume their regular diet once tolerated. We would like them to shower and limit soaking the wound in a tub/Jacuzzi/the ocean for a period of one month or until the incision is completely healed. We will have them follow up in our office in three weeks time for their regularly scheduled appointment. They understand to call our office tomorrow to schedule the time for their three week followup appointment. The patient will notify us should they experience any increase in the severity of pain, redness/swelling/or drainage from their incision. Dave Hernández M.D. DR: REYNALDO JOB#: [id number] CC:
== END 2016-12-04 11:00 | disposition home or self-care (01) | DRG 455 ==
LOC: SDSOVERFLO 10:01 → 3E 18:27
DX: M51.27 Other intervertebral disc displacement, lumbosacral region (principal); M48.07 Spinal stenosis, lumbosacral region; Z98.1 Arthrodesis status; V29.9XXS Motorcycle rider (driver) (passenger) injured in unspecified traffic accident, sequela
CPT/HCPCS: 36415; 72020; 76001; 81003; 86850; 86870; 86900; 86901; 87081; 94003; 94150; J2180; J2250; J2405; J2765